=== PATIENT | female | born 1950 | race Caucasian/White ===

== ENCOUNTER → 2021-05-26 17:57 | Outpatient (CLI) | payer OTHER, SELFPAY ==
--- NOTE | ~2021-05-26 | MM_ITS ---
EXAMINATION: MM screening kimber[facility] BI w shweta HISTORY: Screening TECHNIQUE: Craniocaudal and mediolateral oblique 3-D tomosynthesis images were obtained and synthetic 2-D images were generated. CAD analysis was submitted and interpreted. COMPARISON: 02/14/2019, 09/28/2016, 08/01/2014 bilateral screening mammogram examinations BREAST PARENCHYMAL COMPOSITION: The breasts are heterogeneously dense, which may obscure small masses . FINDINGS: Stable fibroglandular asymmetry. There is no evidence of suspicious mass, calcification, or architectural distortion to suggest malignancy in either breast. There has been no suspicious interv al change. IMPRESSION: 1. No mammographic evidence of malignancy. 2. Recommend routine screening mammography in one year. BI-RADS Category 2: Benign finding(s). Reviewed, dictated and finalized at location A. [employer] INSPECTOR
--- NOTE | ~2021-05-26 | DEXA_ITS ---
Bone Density Report Name: Wendy Joaquin Age: 71 Sex: Female Ethnicity: White Date of : 1950 Indication: postmenopausal; screening for osteoporosis; height loss; Referring Provider: AUDI CARRILLO Study: Bone densitometry was performed. Exam Date: May 26, 2021 Accession number: [id number] Bone Density: Region BMD T-score Z-score Classification AP Spine (L1-L4) 1.101 0.5 2.6 Normal World Health Organization criteria for BMD impression classify patients as: Normal (T-score at or above -1.0), Osteopenia (T-score between -1.0 and -2.5), or Osteoporosis (T-score at or below -2.5). Previous Exams: Region Exam Age BMD T-score BMD Change BMD Change Date g/cm2 vs Baseline vs Previous AP Spine(L1-L4) 05/26/2021 71 1.101 0.5 -0.028* 0.037* 08/01/2014 64 1.064 0.2 -0.065* -0.065* 02/24/2006 55 1.129 0.7 *Denotes significance at 95% confidence level, LSC for AP Spine = 0.022 g/cm2 Clinical Information Provided by Patient: Patient maximum height was 67.5 Menopause Age: 51 Does not regularly consume dairy products Drinks caffeinated beverages Onset of menses at age 14 Number of children 2 Impression: The patient has normal bone mass. No significant bone loss was observed. Discussion: LOW RISK OF FRACTURE; BONE DENSITY IS WELL ABOVE THE MINIMUM DESIRABLE LEVEL AND ABOVE AVERAGE FOR AGE AND SEX AT ALL SKELETAL SITES TESTED. This person's bone density is above expected limits for age and sex. This is rarely clinically significant, but should be pursued if there are significant musculoskeletal complaints. The patient should follow a healthful lifestyle (good nutrition with adequate calcium and vitamin D, and appropriate weight-bearing exercise). Follow-Up: Consider repeating this study in 5 years or sooner if there is some new clinical indication. Reported by: MADAN on 05/26/2021 6:33:00 PM. Reviewed, dictated and finalized at location Connie CANCHOLA
== END ==
DX: Z12.31 Encounter for screening mammogram for malignant neoplasm of breast (principal); Z78.0 Asymptomatic menopausal state
CPT/HCPCS: 77063; 77067; 77080

== ENCOUNTER 2022-12-05 08:05 | Emergency (ER) | payer OTHER, SELFPAY ==
--- NOTE | ~2022-12-05 | XR_ITS ---
EXAMINATION: XR finger 4th LT min 2V DATE: 12/05/2022 08:53 INDICATION: Pain, swelling and bruising post injury to the left fourth finger TECHNIQUE: Dorsal palmar, lateral and 2 oblique views of the left fourth digit were obtained COMPARISON: None FINDINGS: Nondisplaced intra-articular fracture at the ulnar side of the head of the left fourth middle phalanx . Alignment remains essentially anatomic with no significant fracture gap or incongruity at the dista l articular surface. Soft tissue swelling at the fourth digit most prominent about the fourth proxima l interphalangeal joint where there is no fracture. No other fractures identified. 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 IMPRESSION: 1. Nondisplaced intra-articular fracture at the head of the left fourth middle phalanx. Reviewed, dictated and finalized at location A.
[2022-12-05 08:12] VITALS: BP 121/83; PULSE 66; RESP 16; TEMP 36.5; O2SAT 100
--- NOTE | 2022-12-05 08:21 | ED.UPPEXIN ---
HPI - Extremity Injury (Upper) General Chief Complaint: Extremity Injury, Upper Stated Complaint: lt ring finger injury Source: patient Mode of arrival: ambulatory Limitations: no limitations History of Present Illness HPI narrative: 72 y/o female presented for c/o pain, swelling and bruising to the left ring finger after injury yesterday around 1600. States she had a dog leash wrapped around the hand, when the dog pulled quickly and injured the finger. States the swelling and bruising worsened throughout the evening. She reports moderate pain to the finger and knuckles. Denies numbness, tingling or weakness. She did not remove the ring on the finger after the injury. Related Data Home Medications Medication Instructions Recorded Confirmed eszopiclone 3 mg tablet 3 mg PO HS 12/05/22 12/05/22 levothyroxine 50 mcg tablet 50 mcg PO DAILY 12/05/22 12/05/22 Allergies Allergy/AdvReac Type Severity Reaction Status Date / Time vancomycin Allergy Unknown Verified 12/05/22 08:12 Review of Systems Review of Systems: CONSTITUTIONAL: Denies body aches, fever, chills EYES: Denies visual changes ENT: Denies rhinorrhea, congestion CARDIOVASCULAR: Denies chest pain, palpitations, or edema. RESPIRATORY: Denies cough or dyspnea. GASTROINTESTINAL: Denies abdominal pain, nausea, vomiting, or diarrhea. SKIN: Denies rash, itching, or wounds. MUSCULOSKELETAL: Per HPI NEUROLOGIC: Denies headache, numbness, tingling, or weakness. All systems reviewed & are unremarkable except as noted in HPI and below PMFSH Past Medical History Medical History (Updated 12/05/22 @ 14:12 by Allison Blackman APRN) No pertinent past medical history Family History Family History Father Malignant neoplasm of prostate Mother Family history of emphysema Social History Social History Smoking status: Never smoker Alcohol intake: never Comments At time of signature, I have reviewed and agree with nursing past medical, surgical, social and family history unless otherwise noted. Please see nursing chart for further information. There is no relevant family history pertinent to the presenting complaint Exam Narrative: GENERAL: Well-appearing, well-nourished, and in no acute distress. HEAD: Normocephalic, atraumatic. EYES: PERRLA, conjunctivae clear NECK: Supple. CHEST: Speaks in full sentences. No respiratory distress. HEART: Regular rate and rhythm. Normal and equal peripheral pulses. EXTREMITIES: Left 4th digit with moderate swelling and bruising from PIP to distal phalanx, tender to middle phalanx. Finger has normal strength and sensation, slightly limited range of motion with flexion due to swelling. No open wounds or obvious deformity; pulse palpable and equal bilaterally, skin warm, dry, pink. Capillary refill less than 3 seconds. SKIN: Warm, dry, no rash. NEURO: Alert and oriented x3. PSYCH: Normal mood and affect Course Course Emergency Course: Patient is aware of diagnosis, understands and agrees to treatment plan. Anticipatory guidance given. Patient agrees to follow-up as directed and is aware of reasons to seek care at the emergency department. Portions of this record may have been created with voice recognition software Level of Care: Express Care Visit Vital Signs Vital signs: Vital Signs Temperature 97.7 F 12/05/22 08:12 Pulse Rate 66 12/05/22 08:12 Respiratory Rate 16 12/05/22 08:12 Blood Pressure 121/83 12/05/22 08:12 Pulse Oximetry 100 12/05/22 08:12 Oxygen Delivery Room Air 12/05/22 08:12 Temperature 97.7 F 12/05/22 08:12 Pulse Rate 66 12/05/22 08:12 Respiratory Rate 16 12/05/22 08:12 Blood Pressure 121/83 12/05/22 08:12 Pulse Oximetry 100 12/05/22 08:12 Oxygen Delivery Room Air 12/05/22 08:12 Reviewed Procedures Orthopedic Splinting/Casting
== END 2022-12-05 09:43 | disposition home or self-care (01) ==
PROVIDERS: Emergency Provider Nurse Practitioner Family; PCP Internal Medicine
DX: S62.645A Nondisplaced fracture of proximal phalanx of left ring finger, initial encounter for closed fracture (principal); X58.XXXA Exposure to other specified factors, initial encounter; E03.9 Hypothyroidism, unspecified
CPT/HCPCS: 29130; 73140; 99204; G0463